=== PATIENT | male | born 1965 | race Caucasian/White ===

== ENCOUNTER 2019-04-26 13:01 | Inpatient (IN) ==
[2019-04-26] MEDS ORDERED: Ipratropium/Albuterol Neb 3 ML IH ONE (13:16)
[2019-04-26] MEDS ORDERED: methylPREDNISolone 125 MG/2 ML VIAL IVP ONE (13:16)
[2019-04-26 14:04] LABS: Hematocrit 49.4 % (37.5-50.1); Hemoglobin 16.8 g/dL (12.9-16.9); Mean Corpuscular Hemoglobin 31.2 pg (28.0-33.3); Mean Corpuscular Volume 91.8 fL (83.0-100.0); Mean Platelet Volume 9.6 fL (9.4-12.4); Platelet Count 324 K/mcL (140-400); Red Blood Count 5.38 M/mcL (4.19-5.50); Red Cell Distribution Width 14.1 % (11.5-14.5); White Blood Count 18.4 K/mcL (4.3-11.1)
[2019-04-26 14:11] LABS: Alanine Aminotransferase 17 Units/L (7-52); Albumin 5.1 g/dL (3.5-5.7); Albumin/Globulin Ratio 1.8 (1.1-2.2); Alkaline Phosphatase 74 Units/L (34-104); Aspartate Amino Transferase 13 Units/L (13-39); BUN/Creatinine Ratio 14 (6-26); Bilirubin,Indirect 0.3 mg/dL (0.0-1.0); Bilirubin,Total 0.3 mg/dL (0.3-1.0); Blood Urea Nitrogen 12 mg/dL (6-20); Calcium 9.5 mg/dL (8.6-10.3); Carbon Dioxide 23 mEq/L (23-29); Chloride 101 mEq/L (98-107); Globulin 2.8 g/dL (2.4-3.5); Glucose 124 mg/dL (70-105); Osmolality,Calculated 289 (280-300); Potassium 4.2 mEq/L (3.5-5.1); Sodium 139 mEq/L (136-145); Total Protein 7.9 g/dL (6.4-8.9); Troponin I 0.05 ng/mL (< 0.04); eGFR For African Americans > 60 (> 60); eGFR For Non-African Americans > 60 (> 60)
[2019-04-26 15:19] LABS: Eosinophils # 4.1 K/mcL (0.0-0.6); Lymphocytes # 4.1 K/mcL (0.6-4.6); Monocytes # 0.4 K/mcL (0.0-1.3); Neutrophils # 9.9 K/mcL (1.6-8.9); Platelet Estimate Normal (Normal)
[2019-04-26] MEDS ORDERED: Isovue-370 500 ML BOTTLE IVP ONE (15:47)
[2019-04-26] MEDS ORDERED: Aspirin 325 MG TABLET PO ONE (15:52)
[2019-04-26] MEDS ORDERED: Azithromycin 500 MG in 0.9 % Sodium Chloride 250 ML IVPB ONE (16:49)
[2019-04-26] MEDS ORDERED: cefTRIAXone 1,000 MG in Water for inj. (sterile) 10 ML IVP ONE (17:00)
[2019-04-26] MEDS ORDERED: Naloxone 0.4 MG/ML INJ IVP PRN (17:42)
[2019-04-26] MEDS ORDERED: Ipratropium/Albuterol Neb 3 ML IH PRN (17:43)
[2019-04-26] MEDS: Ipratropium/Albuterol Neb 3 ML IH SCH (21:49)
[2019-04-26] MEDS: *HR* Heparin 5,000 UNIT/ML VIAL SQ SCH (22:16)
[2019-04-27 02:07] LABS: Basophils % 0.2 %; Eosinophils # 0.1 K/mcL (0.0-0.6); Eosinophils % 0.6 %; Hematocrit 42.4 % (37.5-50.1); Immature Granulocytes % 0.9 % (0-4); Lymphocytes # 1.2 K/mcL (0.6-4.6); Lymphocytes % 9.4 %; Mean Corpuscular HGB Conc 34.7 g/dL (31.6-35.5); Mean Corpuscular Hemoglobin 30.7 pg (28.0-33.3); Mean Corpuscular Volume 88.5 fL (83.0-100.0); Mean Platelet Volume 9.7 fL (9.4-12.4); Monocytes # 0.6 K/mcL (0.0-1.3); Monocytes % 4.9 %; Neutrophils # 10.6 K/mcL (1.6-8.9); Platelet Count 291 K/mcL (140-400); Red Blood Count 4.79 M/mcL (4.19-5.50); White Blood Count 12.7 K/mcL (4.3-11.1)
[2019-04-27 02:11] LABS: Hemoglobin 14.7 g/dL (12.9-16.9)
[2019-04-27 02:25] LABS: BUN/Creatinine Ratio 18 (6-26); Blood Urea Nitrogen 16 mg/dL (6-20); Calcium 9.4 mg/dL (8.6-10.3); Carbon Dioxide 28 mEq/L (23-29); Chloride 101 mEq/L (98-107); Glucose 151 mg/dL (70-105); Osmolality,Calculated 296 (280-300); Potassium 4.2 mEq/L (3.5-5.1); Sodium 141 mEq/L (136-145); eGFR For African Americans > 60 (> 60); eGFR For Non-African Americans > 60 (> 60)
[2019-04-27 02:58] LABS: Adenovirus Not Detected (Not Detect); Coronavirus 229E Not Detected (Not Detect); Coronavirus HKU1 Not Detected (Not Detect); Coronavirus NL63 Not Detected (Not Detect); Coronavirus OC43 Not Detected (Not Detect); Human Metapneumovirus Not Detected (Not Detect); Human Rhinovirus/Enterovirus Not Detected (Not Detect); Influenza A Subtype 2009 H1 Not Detected (Not Detect); Influenza B Not Detected (Not Detect); Parainfluenza Virus 1 Not Detected (Not Detect); Parainfluenza Virus 2 Not Detected (Not Detect); Parainfluenza Virus 3 Not Detected (Not Detect)
[2019-04-27 02:59] LABS: Bordetella Pertussis Not Detected (Not Detect); Chlamydophila pneumoniae Not Detected (Not Detect); Mycoplasma pneumoniae Not Detected (Not Detect); Parainfluenza Virus 4 Not Detected (Not Detect); Respiratory Syncytial Virus Not Detected (Not Detect)
[2019-04-27] MEDS: Ipratropium/Albuterol Neb 3 ML IH SCH ×4 (03:44→22:50)
[2019-04-27] MEDS: *HR* Heparin 5,000 UNIT/ML VIAL SQ SCH ×3 (06:45→21:06)
[2019-04-27] MEDS: Azithromycin 500 MG in D5% in Water 250 ML IVPB SCH (10:14)
[2019-04-27] MEDS: cefTRIAXone 1,000 MG in Water for inj. (sterile) 10 ML IVP SCH (10:14)
[2019-04-27] MEDS ORDERED: 0.9 % Sodium Chloride 1,000 ML IV ONE (16:36)
[2019-04-27] MEDS ORDERED: MethylPREDNISolone 40 MG/ML VIAL IVP SCH ×2 (18:00)
[2019-04-28 01:42] LABS: Hematocrit 38.4 % (37.5-50.1); Hemoglobin 13.6 g/dL (12.9-16.9); Mean Corpuscular HGB Conc 35.4 g/dL (31.6-35.5); Mean Corpuscular Hemoglobin 31.7 pg (28.0-33.3); Mean Corpuscular Volume 89.5 fL (83.0-100.0); Mean Platelet Volume 9.9 fL (9.4-12.4); Platelet Count 261 K/mcL (140-400); Red Blood Count 4.29 M/mcL (4.19-5.50); Red Cell Distribution Width 14.4 % (11.5-14.5); White Blood Count 14.1 K/mcL (4.3-11.1)
[2019-04-28 02:04] LABS: BUN/Creatinine Ratio 23 (6-26); Blood Urea Nitrogen 20 mg/dL (6-20); Calcium 9.2 mg/dL (8.6-10.3); Carbon Dioxide 22 mEq/L (23-29); Chloride 104 mEq/L (98-107); Glucose 175 mg/dL (70-105); Osmolality,Calculated 289 (280-300); Potassium 4.2 mEq/L (3.5-5.1); Sodium 136 mEq/L (136-145); eGFR For African Americans > 60 (> 60); eGFR For Non-African Americans > 60 (> 60)
[2019-04-28] MEDS: Ipratropium/Albuterol Neb 3 ML IH SCH ×3 (04:00→16:07)
[2019-04-28] MEDS: *HR* Heparin 5,000 UNIT/ML VIAL SQ SCH ×2 (05:15→15:33)
[2019-04-28 06:31] VITALS: BP 140/90
[2019-04-28] MEDS ORDERED: predniSONE 20 MG TABLET PO SCH (09:00)
[2019-04-28] MEDS: cefTRIAXone 1,000 MG in Water for inj. (sterile) 10 ML IVP SCH (10:05)
[2019-04-28] MEDS: Azithromycin 500 MG in D5% in Water 250 ML IVPB SCH (10:06)
== END 2019-04-28 18:15 | disposition home or self-care (01) | DRG 720 ==
LOC: EMEROOARM 13:01 → SUATTDRO 18:26 → 2NENU 18:26
PROVIDERS: ADMIT Internal Medicine; ATTEND Internal Medicine